=== PATIENT | female | born 1950 | race American Indian/Alaskan Native ===

== ENCOUNTER 2017-10-15 23:08 | Emergency (ER) | payer MEDICARE ==
--- NOTE | 2017-10-16 00:18 | XRay Report ---
FINAL REPORT PROCEDURE: XR HIP 2-3V RT TECHNIQUE: RIGHT hip radiographs, AP and lateral views. HISTORY: hip pain COMPARISON: No prior studies are available for comparison. FINDINGS: Fracture (s) and/or Dislocation(s): None . Joint space(s): Normal . Soft tissues: Normal . Bone mineralization: Normal . Foreign bodies: None . IMPRESSION: Normal Examination.
[2017-10-16] MEDS ORDERED: TORADOL IM ONE (06:15)
--- NOTE | 2017-10-16 06:15 | Emergency Department Report ---
ED Extremity Problem HPI - General Chief complaint: Extremity Problem,Nontraumatic Stated complaint: RIGHT HIP PAIN Time Seen by Provider: 10/16/17 06:09 Source: patient Mode of arrival: Ambulatory Limitations: No Limitations - History of Present Illness Initial comments: 66-year-old -[place] female comes to the emergency room complaining of right hip pain 1 week. Patient admits to doing yardwork and raking. Patient denies any trauma no falls no direct blows. Patient reports that she went to her primary care provider name gave her tramadol. Patient points the trauma daughter does not help with her pain. She does admit to taking over-the- counter Motrin which she reports has helped but came back. Patient has a past medical history of diabetes currently takes oral medication for that. As well as borderline hypertension. Patient reports that the pain is worse when getting up out of the chair and started to move. It improves with movement. Then returns back after she has sat for a while. MD Complaint: extremity pain -: week(s) (1) Location: right, lower extremity History of Same: No -: Yes arthralgia Radiation: none Severity scale (0 -10): 10 Quality: aching, sharp Consistency: intermittent Improves with: movement Worsens with: other (getting up out of the chair) Associated Symptoms: denies other symptoms - Related Data Previous Rx's Medication Instructions Recorded Last Taken Type Ibuprofen [Motrin 600 MG tab] 600 mg PO Q8H PRN #30 tablet 10/16/17 Unknown Rx Allergies Allergy/AdvReac Type Severity Reaction Status Date / Time No Known Allergies Allergy Verified 03/07/15 04:18 ED Review of Systems ROS: Stated complaint: RIGHT HIP PAIN Other details as noted in HPI Comment: All other systems reviewed and negative Musculoskeletal: arthralgia (hip pain) ED Past Medical Hx - Past Medical History Hx Hypertension: Yes Hx Psychiatric Treatment: Yes (ANXIETY) - Social History Smoking Status: Never Smoker Substance Use Type: None - Medications Home Medications: Home Medications Medication Instructions Recorded Confirmed Last Taken Type Ibuprofen [Motrin 600 MG tab] 600 mg PO Q8H PRN #30 tablet 10/16/17 Unknown Rx ED Physical Exam - General Limitations: No Limitations General appearance: alert, in no apparent distress - Head Head exam: Present: atraumatic, normocephalic - Eye Eye exam: Present: EOMI - ENT ENT exam: Present: mucous membranes moist - Expanded Lower Extremity Exam Right Hip exam: Present: tenderness (trochanter). Absent: swelling, abrasion Knee exam: Present: normal inspection, full ROM. Absent: tenderness Lower Leg exam: Present: normal inspection, full ROM. Absent: tenderness Neuro vascular tendon exam: Present: no vascular compromise - Back Exam Back exam: Present: normal inspection - Neurological Exam Neurological exam: Present: alert, oriented X3 - Psychiatric Psychiatric exam: Present: normal affect, normal mood - Skin Skin exam: Present: warm, dry, intact, normal color. Absent: rash ED Course Vital Signs 10/15/17 10/15/17 10/16/17 23:06 23:27 04:55 Temperature 98.0 F 98 F 98.0 F Pulse Rate 69 68 56 L Respiratory 18 16 18 Rate Blood Pressure 163/84 163/84 153/79 O2 Sat by Pulse 98 98 99 Oximetry ED Medical Decision Making - Radiology Data Radiology results: report reviewed, image reviewed FINAL REPORT PROCEDURE: XR HIP 2-3V RT TECHNIQUE: RIGHT hip radiographs, AP and lateral views. HISTORY: hip pain COMPARISON: No prior studies are available for comparison. FINDINGS: Fracture (s) and/or Dislocation(s): None . Joint space(s): Normal . Soft tissues: Normal . Bone mineralization: Normal . Foreign bodies: None . IMPRESSION: Normal Examination. Transcribed By: [facility] Dictated By: RAMOS NAVA MD Electronically Authenticated By: RAOMS NAVA MD Signed Date/Time: 10/16/17 0010 - Medical Decision Making Patient has been evaluated by this provider fast track. X-ray of right hip shows normal examination. Patient will be given a Toradol injection 30 mg IM. Discussed the patient she can try [id number] ibuprofen. Discussed the patient to follow up with her primary care provider. Critical care attestation.: If time is entered above; I have spent that time in minutes in the direct care of this critically ill patient, excluding procedure time. ED Disposition Clinical Impression: Acute right hip pain Disposition: DC-01 TO HOME OR SELFCARE Is pt being admited?: No Does the pt Need Aspirin: No Condition: Stable Instructions: Arthralgia (ED) Additional Instructions: Please take pain medication as prescribed. If his symptoms persist or gets worse please follow-up with her primary care provider or an orthopedic provider. Prescriptions: Ibuprofen [Motrin 600 MG tab] 600 mg PO Q8H PRN #30 tablet PRN Reason: Pain Referrals: STEPHANIE LUNA MD [Primary Care Provider] - 3-5 Days GAGE BENOIT MD [Staff Physician] - 3-5 Days Forms: Work/School Release Form(ED)
[2017-10-16 06:50] VITALS: BP 145/89
== END 2017-10-16 06:50 | disposition home or self-care (01) ==
LOC: ED 23:08
DX: M25.551 Pain in right hip (principal); I10 Essential (primary) hypertension; F41.9 Anxiety disorder, unspecified
CPT/HCPCS: 73502; 96372; 99283; J1885